=== PATIENT | male | born 1945 | race Caucasian/White ===

== ENCOUNTER 2018-09-23 21:58 | Emergency (ER) | payer OTHER ==
[~2018-09-23] VITALS: Ht 167.6 cm; Wt 61.0 kg
--- NOTE | 2018-09-23 22:13 | ERD ---
ER Documentation Chief Complaint Chief Complaint HPI This is a 73-year-old male who is currently wheelchair-bound at a [facility] facility. The patient has a history of hypertension on lisinopril and a statin. The patient indicates several years ago he became wheelchair-bound due to a previous cerebrovascular accident. He indicates he is been undergoing therapy and had improvement with his weakness of his left upper extremity. At 1925, roughly 2- 1/2 hours prior to arrival the patient complained of numbness of the left side of his face and his left arm. He developed weakness of his left arm. He denies headache. He denies any changes in vision. He denies any difficulty speaking. Nursing staff called 911 and EMS indicated they had spoken with the patient's but she was a poor historian. They indicated the patient's Accu-Chek was 126 and blood pressure is 146/90. ROS All systems reviewed and are negative except as per history of present illness. Physical Exam Vitals Vital Signs Date Temp Pulse Resp B/P (MAP) Pulse Ox O2 O2 Flow FiO2 Time Delivery Rate 09/23/18 98.6 83 16 136/112 98 22:17 (120) Physical Exam Constitutional:Well-developed. Well-nourished. HEENT:Normocephalic. Atraumatic.Pupils were equal round reactive to light. Dry mucous membranes.No tonsillar exudates. Neck: No nuchal rigidity. No lymphadenopathy. No posterior cervical spine tenderness or step-offs. Respiratory: Not using accessory muscles of respiration.Lungs were clear to auscultation bilaterally. No rhonchi. No rales. No wheezing. Cardiovascular: Regular rate regular rhythm.No murmurs. No rubs were appreciated.S1, S2 normal. Distal pulses are palpable 2+ bilaterally. GI: Abdomen was soft. Nontender. Non Distended. No pulsatile abdominal masses or bruits. No rebound. No guarding. Bowel sounds were present and normal. Muscle skeletal: Muscle atrophy of the bilateral lower extremities. Patient has decreased muscular strength of the left upper extremity 3 out of 5 compared to 5 out of 5 in the right upper extremity Skin: No petechia, no purpura. No lesions on the palms or the soles of the feet. No maculopapular rash. NEURO: Patient was alert, awake, orientated x3.No facial droop. Pronator drift of the left upper extremity. No facial droop. No slurred speech. Gait not observed as patient is wheelchair-bound. Decreased sensation to sharp and dull of the left upper extremity and left thigh compared to the right. Sensation intact of the bilateral face. Results 24 hrs Laboratory Tests Test 09/23/18 22:06 09/23/18 22:09 Bedside Glucose 118 mg/dL White Blood Count Pending Red Blood Count Pending Hemoglobin Pending Hematocrit Pending Mean Corpuscular Volume Pending Mean Corpuscular Hemoglobin Pending Mean Corpuscular Hemoglobin Concent Pending Red Cell Distribution Width Pending Platelet Count Pending Mean Platelet Volume Pending Procedures/MDM This is a 73-year-old male that presented to the emergency department with strokelike symptoms. The patient was immediately placed on a color television console monitor continuous pulse oximetry and taken to undergo a CT scan. We received an EMS call and therefore code stroke was called at 2153. EMS arrival was at 2156. The patient was on the CT scanner by 2157. Telemetry neuro was called at 0. I spoke with the radiologist who indicated there was no acute intracerebral hemorrhage but the patient had multiple old left cerebral parietal frontal and occipital changes to suggest previous CVAs and was officially read as the followin. No definite acute intracranial infarct. Correlation with MRI is recommended to clinically appropriate. 2. No evidence for acute hemorrhage.. 3. 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 4. Old left external capsule infarct. 5. Nonspecific white matter changes most commonly seen with microvascular ischemic disease. The patient is not on anticoagulants. 12 Lead EKG tracing ordered and reviewed by myself showed: Normal sinus rhythm of 78 bpm and no arrhythmia. Premature supraventricular complexes AL interval normal. QRS duration normal. No ST segment elevation No ST segment depression. No changes consistent with acute ischemia. EKG tracing taken in route by EMS at 2156 indicated in atrial fibrillation however I was not in agreement with this as there were P waves that were present and appeared to be artifact resulting in the irregular regular rhythm. Heart rate was 81 beats I spoke with the telemetry neurologist Dr. Bennett who evaluated the patient at bedside through the telemetry neuro machine. After Dr. Bennett evaluated the patient we both were in agreement that the patient was not a TPA candidate. The patient was a very poor historian. The patient stated he was not on antiplatelets. He also kept stating he was experiencing both numbness and weakness of his left upper extremity. However from the start of my examination to reevaluation at 10:48 PM the patient had more range of motion of his left upper extremity than he initially had on his arrival to the emergency department. TPA had been discussed with the patient by myself and with Dr. Bennett however the patient states that his remaining sign of numbness of his left upper extremity was not disabling and therefore the risks outweigh the benefits in this situation given the poor history from the patient and his [facility] facility. He was given aspirin in the emergency department. He will be admitted to the hospitalist and to the telemetry service Departure Diagnosis: Primary Impression: Acute weakness Additional Impression: TIA (transient ischemic attack) Condition: Serious LEONIDES BENJAMIN MD Sep 23, 2018 22:13
[2018-09-23 22:17] VITALS: Ht 167.6 cm; Wt 61.0 kg
--- NOTE | 2018-09-23 22:56 | CONS ---
DATE OF ADMISSION: 09/23/2018 DATE OF CONSULTATION: 09/23/2018 REASON FOR CONSULTATION: I was asked to see the patient for concern of left arm numbness or weakness . HISTORY OF PRESENT ILLNESS: The patient is a 73-year-old male with no known past medical history exc ept for prior strokes. The patient presents from a senior care facility where a little history w as shared. The patient seems to be impaired cognitively and is an unreliable historian. He thinks t hat perhaps his symptoms might have started 4 hours ago, though it is unclear from that some point in time. He describes weakness of the left arm that has worsened. Other times he describes that he ju st have some numbness of his left arm. Regardless, it is not clear what the patient's baseline defic it is. He is not on any type of antiplatelets or any type of stroke secondary prevention. Noncontra st head CT demonstrates an old right occipital infarct as well as multiple lacunar disease of uncerta in age. The patient denies any difficulty ambulating. Attempts to reach out to family as well as e facility to determine more exact onset time of symptoms or baseline disabilities have been unsucces sful. PHYSICAL EXAMINATION: At the time on evaluating the patient, the patient is alert. His extraocular movements are full. His face is symmetric. The patient knows what month it is. He knows his age, b ut is otherwise confused. There is a language barrier. The patient has full strength proximally in his left and right arms. He has contracture of his left arm with reduced strength distally. His str ength in his lower extremity seems to be full bilaterally. He denies any objective decrease in sensa tion bilaterally. ASSESSMENT: This is a gentleman who comes in with unclear symptoms with prior stigmata of stroke. T he patient was given aspirin. He should be hydrated. He should begin permissive hypertension ____. It might be appropriate to obtain an MRI scan on him as well as an MRA of the neck to assess for lar ge vessel disease. The patient should not be a TPA candidate or endovascular candidate given the unc ertainty of his baseline and uncertainty of the current new symptoms. I discussed this complex case with the emergency department physician, who agrees with assessment. Dictated By: BRIAN HERNANDEZ CM/NUBIA Conf#: [id number] DID#: [id number] CC: LEONIDES BENJAMIN MD;*[facility]*
[2018-09-23] MEDS ORDERED: BISACODYL (EC) 5 MG TAB PO PRN (23:30)
[2018-09-23] MEDS ORDERED: ACETAMINOPHEN 325 MG TAB PO PRN ×2 (23:30)
[2018-09-23] MEDS ORDERED: NACL 0.9% 3 ML SYG IV SCH (23:30)
[2018-09-23] MEDS ORDERED: ASPIRIN 81 MG TAB PO ONE (23:30)
[2018-09-23] MEDS ORDERED: DOCUSATE SODIUM 100 MG CAP PO PRN (23:30)
[2018-09-23] MEDS ORDERED: ONDANSETRON 4 MG INJ IV PRN ×2 (23:30)
--- NOTE | 2018-09-24 00:08 | HP ---
Date/Time of Note Date/Time of Note DATE: 09/24/18 TIME: 00:06 Assessment/Plan VTE Prophylaxis SCD applied (from Nsg): Yes Pharmacological prophylaxis: NA/contraindicated Pharm contraindication: low risk/ambulating Lines/Catheters IV Catheter Type (from Nrsg): Peripheral IV Assessment/Plan Hospital Course This is a 73-year-old male being admitted to the telemetry unit for observation for: #1 suspicion for CVA/TIA: Patient does have some left upper extremity weakness and numbness that he reports as well as numbness of the face. Unsure whether this is a new or old as we do not have any corroborating evidence. Patient was seen and evaluated by telemetry neurology. Patient was out of TPA window. At the current time we will proceed with an MRI of the brain along with MRA of the brain and neck. Carotid ultrasound. Echocardiogram with bubble study. Will consult neurology . PT OT speech evaluation. CT scan shows old infarcts. Aspirin and statin. Permissive hypertension for the first 24 hours. #2 history of CVA: Patient is currently wheelchair-bound and lives in an assisted living facility. Patient is a poor historian. We will need to corroborate patient's past medical history with his . #3 hyperlipidemia: Statin, will need to confirm what is taking at home #4 DVT GI prophylaxis: SCDs, no GI prophylaxis indicated Further treatment strategy will be transferred clinical course Result Diagram: 09/23/18220809/23/182208 Results 24hrs Laboratory Tests Test 09/23/18 22:06 09/23/18 22:09 Bedside Glucose 118 White Blood Count 8.7 Red Blood Count 4.56 L Hemoglobin 14.6 Hematocrit 41.9 L Mean Corpuscular Volume 91.9 Mean Corpuscular Hemoglobin 32.0 Mean Corpuscular Hemoglobin Concent 34.8 Red Cell Distribution Width 12.6 Platelet Count 279 Mean Platelet Volume 9.9 Immature Granulocytes % 0.200 Neutrophils % 35.2 L Lymphocytes % 53.9 H Monocytes % 7.9 Eosinophils % 2.3 Basophils % 0.5 Nucleated Red Blood Cells % 0.0 Immature Granulocytes # 0.020 Neutrophils # 3.1 Lymphocytes # 4.7 H Monocytes # 0.7 Eosinophils # 0.2 Basophils # 0.0 Nucleated Red Blood Cells # 0.0 Prothrombin Time 12.8 Prothrombin Time Ratio 1.0 INR International Normalized Ratio 0.95 Activated Partial Thromboplast Time 26.6 Urine Color NEGRA Urine Clarity CLOUDY A Urine pH 7.0 Urine Specific [place] 1.009 Urine Ketones NEGATIVE Urine Nitrite NEGATIVE Urine Bilirubin NEGATIVE Urine Urobilinogen NEGATIVE Urine Leukocyte Esterase 1+ H Urine Microscopic RBC 0 Urine Microscopic WBC 11 H Urine Bacteria FEW A Urine Hemoglobin NEGATIVE Urine Glucose NEGATIVE Urine Total Protein NEGATIVE Sodium Level 141 Potassium Level 3.8 Chloride Level 98 Carbon Dioxide Level 31 Anion Gap 12 Blood Urea Nitrogen 20 Creatinine 0.88 Est Glomerular Filtrat Rate mL/min Glucose Level 114 Hemoglobin A1c 5.7 Calcium Level 9.7 Total Bilirubin 0.1 L Direct Bilirubin 0.00 Indirect Bilirubin 0.1 Aspartate Amino Transf (AST/SGOT) 51 H Alanine Aminotransferase (ALT/SGPT) 77 H Alkaline Phosphatase 94 Creatine Kinase 31 Creatine Kinase Index 2.0 Creatinine Kinase MB (Mass) 0.62 Troponin I < 0.012 Total Protein 7.6 Albumin 4.3 Globulin 3.30 H Albumin/Globulin Ratio 1.30 Triglycerides Level 56 Cholesterol Level 109 LDL Cholesterol, Calculated 57 HDL Cholesterol 41 Cholesterol/HDL Ratio 2.6 Urine Opiates Screen Negative Urine Barbiturates Negative Urine Amphetamines Screen Negative Urine Benzodiazepines Screen Negative Urine Cocaine Screen Negative Urine Cannabinoids Negative Ethyl Alcohol Level < 10.0 H HPI/ROS Admit Date/Time Admit Date/Time Hx of Present Illness cc: left sided face and arm numbness The following history was obtained from the ED physician documentation as well as from the patient however patient's history was limited. This is a 73-year-old male who is currently wheelchair-bound at an assisted living facility. The patient indicates several years ago he became wheelchair- bound due to a previous cerebrovascular accident. He indicates he is been undergoing therapy and had improvement with his weakness of his left upper extremity. At 1925, roughly 2-1/2 hours prior to arrival the patient complained of numbness of the left side of his face and his left arm. He developed weakness of his left arm. He denies headache. He denies any changes in vision. He denies any difficulty speaking. Nursing staff called 911 and EMS indicated they had spoken with the patient's but she was a poor historian. They indicated the patient's Accu-Chek was 126 and blood pressure is 146/90. allergies: nkda meds: see aug ROS Const: As per HPI Eyes : No pain discharge or redness or change in visual acuity ENT: No pain, sore throat, congestion, congestion, dysphagia or discharge Respiratory: No shortness of breath, cough, sputum, wheezing, or pleuritic pain Cardiovascular: No chest pain, palpitation, PND, or edema GI : no change in appetite, abdominal pain, nausea, vomiting, diarrhea, constipation, or change in the color his stool Genitourinary: No dysuria, hematuria, flank pain , discharge or CVA tenderness Musculoskeletal: No joint pain, back pain, neck pain, restricted range of motion in neck or joints Skin: No rash, bruising or hives Neuro: As per HPI Endocrine: No polyuria, polydipsia, temperature intolerance Psych: No hallucination, depression, anxiety or suicidal ideation Additional Comments PROCEDURE: CT Brain without contrast. CLINICAL INDICATION: Focal neurological deficit. TECHNIQUE: A CT of the brain was performed on a multislice detector CT scanner utilizing axial sections from the skull base through the vertex without contrast. Images were reviewed on a high-resolution PACS workstation. Exam CTDlvol = 38 mGy and DLP = 634 mGy-cm. One of the following 3 dose reduction techniques were used: Automated exposure control; adjustment of the mA and/or kV according to patient size; or use of iterative reconstruction technique. DICOM images are available. COMPARISON: None available FINDINGS: There is age appropriate central and peripheral atrophy. There is no midline shift. There is a moderate degree of supratentorial periventricular and subcortical white matter hypodensities. There is no definite acute stroke. There old left cerebellar, right occipital and left parietal infarcts. There is an old left external capsule infarct. There is no intracranial hemorrhage or abnormal extra-axial fluid collection. Visualized paranasal sinuses are clear. IMPRESSION: 1. No definite acute intracranial infarct. Correlation with MRI is recommended to clinically appropriate. 2. No evidence for acute hemorrhage.. 3. 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 4. Old left external capsule infarct. 5. Nonspecific white matter changes most commonly seen with microvascular ischemic disease. Findings reported to Dr. Benjamin on 09/23/2018 10:09:10 PM. RPTAT: HMVK .Rafi Estevez MD, MD Date Time Electronically viewed and signed by .Rafi Estevez MD, on 09/23/2018 22:10 .K/ CC: LEONIDES BENJAMIN MD [id number] PROCEDURE: One view chest radiograph. CLINICAL INDICATION: Code stroke TECHNIQUE: An AP view of the chest was obtained. COMPARISON: None FINDINGS: Mediastinum: There is calcification of the wall of the thoracic aorta. Heart size: Normal Pulmonary vasculature: No visible engorgement. Lungs: Clear. Costophrenic sulci: Clear. Bony structures: There appear to be a ossified loose bodies in the inferior recess of the right shoulder, associated with glenohumeral osteoarthritis. IMPRESSION: 1. Atherosclerosis of the thoracic aorta. 2. Otherwise, radiographically unremarkable chest. 3. Degenerative change of both shoulders with probable loose bodies in the right shoulder capsule. RPTAT:AAJJ Physician Uvaldo Date Time Electronically viewed and signed by Physician Uvaldo on 09/23/2018 22:30 GW/ CC: LEONIDES BENJAMIN MD [id number] PMH/Family/Social Past Medical History History of CVA, hyperlipidemia, wheelchair-bound Medications Current Medications Ondansetron HCl (Zofran Inj) 4 mg ER BRIDGE PRN IV NAUSEA/VOMITING; Start 09/23/18 at 23:30; Stop 09/24/18 at 23:29 Acetaminophen (Tylenol Tab) 650 mg ER BRIDGE PRN PO .MILD PAIN 1-3 OR TEMP; Start 09/23/18 at 23:30; Stop 09/24/18 at 23:29 IV Flush (NS 3 ml) 3 ml PER PROTOCOL IV ; Start 09/23/18 at 23:30 Ondansetron HCl (Zofran Inj) 4 mg Q6H PRN IV NAUSEA/VOMITING; Start 09/23/18 at 23:30 Aspirin (Aspirin) 81 mg DAILY PO ; Start 09/24/18 at 09:00 Acetaminophen (Tylenol Tab) 650 mg Q6H PRN PO .PAIN 1-3 OR TEMP; Start 09/23/18 at 23:30 Docusate Sodium (Colace) 100 mg Q12H PRN PO .CONSTIPATION; Start 09/23/18 at 23:30 Bisacodyl (Dulcolax) 5 mg DAILY PRN PO .CONSTIPATION; Start 09/23/18 at 23:30 Coded Allergies: No Known Allergy (Unverified , 09/24/18) Past Surgical History Left arm surgery Family History Significant Family History: no pertinent family hx Social History Alcohol Use: none Smoking Status: Never smoker Drug Use: none Exam/Review of Systems Vital Signs Vitals Vital Signs Date Temp Pulse Resp B/P (MAP) Pulse Ox O2 O2 Flow FiO2 Time Delivery Rate 09/23/18 98.6 83 16 136/112 98 22:17 (120) Exam Exam General: Patient currently lying in bed in no acute distress, he does appear to have some slight slurring of speech however he states that this is normal for him HEENT: Atraumatic, normocephalic. The pupils are equal, round and reactive. Extraocular motor are intact Neck: Supple with full range of motion. No rigidity or meningismus Chest: Nontender Lungs: Clear to auscultation bilaterally no crackles rales or wheezing Heart: Normal S1-S2, Regular rhythm and rate. No murmur, S3, or S4 Abdomen: Soft , nontender, nondistended , bowel sounds are present. No guarding no rebound tenderness , No masses or organomegaly. No costovertebral temporal angle mass Extremities: Normal to inspection, no edema no cyanosis Neurologic: Normal mental status, speech normal, cranial nerves II through XII are intact, left upper extremity weakness compared to the right, unsure of chronicity. Additional Comments 12 Lead EKG tracing ordered and reviewed by myself showed: Normal sinus rhythm of 78 bpm and no arrhythmia. Premature supraventricular complexes MI interval normal. QRS duration normal. No ST segment elevation No ST segment depression. No changes consistent with acute ischemia PROCEDURE: CT Brain without contrast. CLINICAL INDICATION: Focal neurological deficit. TECHNIQUE: A CT of the brain was performed on a multislice detector CT scanner utilizing axial sections from the skull base through the vertex without contrast. Images were reviewed on a high-resolution PACS workstation. Exam CTDlvol = 38 mGy and DLP = 634 mGy-cm. One of the following 3 dose reduction techniques were used: Automated exposure control; adjustment of the mA and/or kV according to patient size; or use of iterative reconstruction technique. DICOM images are available. COMPARISON: None available FINDINGS: There is age appropriate central and peripheral atrophy. There is no midline shift. There is a moderate degree of supratentorial periventricular and subcortical white matter hypodensities. There is no definite acute stroke. There old left cerebellar, right occipital and left parietal infarcts. There is an old left external capsule infarct. There is no intracranial hemorrhage or abnormal extra-axial fluid collection. Visualized paranasal sinuses are clear. IMPRESSION: 1. No definite acute intracranial infarct. Correlation with MRI is recommended to clinically appropriate. 2. No evidence for acute hemorrhage.. 3. 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 4. Old left external capsule infarct. 5. Nonspecific white matter changes most commonly seen with microvascular ischemic disease. Findings reported to Dr. Benjamin on 09/23/2018 10:09:10 PM. RPTAT: HMVK .Rafi Estevez MD, MD Date Time Electronically viewed and signed by .Rafi Estevez MD, MD on 09/23/2018 22:10 .K/ CC: LEONIDES BENJAMIN MD [id number] PROCEDURE: One view chest radiograph. CLINICAL INDICATION: Code stroke TECHNIQUE: An AP view of the chest was obtained. COMPARISON: None FINDINGS: Mediastinum: There is calcification of the wall of the thoracic aorta. Heart size: Normal Pulmonary vasculature: No visible engorgement. Lungs: Clear. Costophrenic sulci: Clear. Bony structures: There appear to be a ossified loose bodies in the inferior recess of the right shoulder, associated with glenohumeral osteoarthritis. IMPRESSION: 1. Atherosclerosis of the thoracic aorta. 2. Otherwise, radiographically unremarkable chest. 3. Degenerative change of both shoulders with probable loose bodies in the right shoulder capsule. RPTAT:AAJJ Physician Uvaldo Date Time Electronically viewed and signed by Wilman Haywood Physician on 09/23/2018 22:30 GW/ CC: LEONIDES BENJAMIN MD [id number] DRAGAN MCFADDEN Sep 24, 2018 00:08
[2018-09-24] MEDS ORDERED: hydrALAzine 20 MG INJ IV PRN (00:30)
[2018-09-24] MEDS ORDERED: ATORVASTATIN 80 MG TAB PO ONE (08:00)
[2018-09-24] MEDS ORDERED: CLOP75TA27 PO (08:19)
[2018-09-24] MEDS ORDERED: ROSU20TA PO (08:20)
[2018-09-24] MEDS ORDERED: LISI1TAB4 PO (08:20)
[2018-09-24] MEDS ORDERED: ATEN50TA PO (08:20)
[2018-09-24] MEDS ORDERED: OLOP2.5D BOTH EYES (08:21)
[2018-09-24] MEDS ORDERED: ASPIRIN 81 MG TAB PO SCH ×2 (09:00)
--- NOTE | 2018-09-24 11:18 | CONS ---
Assessment/Plan Assessment/Plan Hospital Course 73 M c/ reported Hx of prior stroke w/ L hemiparesis....and other comorbidities, who presents for evaluation of acute left face and arm numbness.. for which neurology is consulted He additionally notes perhaps worsened weakness in the left arm... The clinical picture is most ominously concerning for acute stroke.. Recrudescence is additionally considered, though a Dx of exclusion.. Head CT is notable for chronic anterior and posterior infarct bilaterally.. LDL 54 UA + UDS neg P: MRI brain to evaluate for acute ischemia OK to continue plavix for secondary stroke prevention OK to continue Crestor in the short term pending the above (LDL is at goal) PT/OT/ST as necessary Other management per primary Neurologically stable for [place] Consultation Date/Type/Reason Admit Date/Time Type of Consult Neurology Reason for Consultation L face and arm numbness Requesting Provider: BRYON GUERRERO Date/Time of Note DATE: 09/24/18 TIME: 11:18 Hx of Present Illness The following history was obtained from the ED physician documentation as well as from the patient however patient's history was limited. This is a 73-year-old male who is currently wheelchair-bound at an assisted living facility. The patient indicates several years ago he became wheelchair- bound due to a previous cerebrovascular accident. He indicates he is been undergoing therapy and had improvement with his weakness of his left upper extremity. At 1925, roughly 2-1/2 hours prior to arrival the patient complained of numbness of the left side of his face and his left arm. He developed weakness of his left arm. He denies headache. He denies any changes in vision. He denies any difficulty speaking. Nursing staff called 911 and EMS indicated they had spoken with the patient's but she was a poor historian. They indicated the patient's Accu-Chek was 126 and blood pressure is 146/90. negative unless noted otherwise in HPI Exam/Review of Systems Exam Vitals Vital Signs Date Temp Pulse Resp B/P (MAP) Pulse Ox O2 O2 Flow FiO2 Time Delivery Rate 09/24/18 98.3 109 20 155/69 98 Room Air 09:00 (97) Intake and Output 09/23/18 09/23/18 09/24/18 1515:00 23:00 07:00 OutputOutput Total 650 ml BalanceBalance -650 ml Exam PE: Gen Appearance: No Apparent Distress HEENT: Normocephalic Cardiovascular: Regular rate Lungs: Clear bilaterally Abdomen: Soft Extremities: Dry NE: The patient was alert though disoriented. Language was normal. Fund of knowledge was limited. Pupils were equal and reactive to light. There was no afferent pupillary defect. Visual wood were normal. Funduscopic examination was limited. Extra-ocular movements were full. Ptosis was absent. There was no nystagmus. Facial sensation was diminished on the L. Face was symmetric with normal strength. Hearing was intact. Palate movements were normal. Neck strength was normal. There was normal tongue bulk and speed of movement. Tone was normal. Muscle bulk was diminished. I did not see fasciculations. L arm was weak; legs were mildly weak and symmetric Sensation to light touch, vibration sensation was diminished in the LUE. Temperature and pinprick sensation was normal. Rapid alternating movements were normal. Dysmetria noted bilaterally (L worse than R). There was no intention tremor. Gait was deferred due to bedrest. Arm and leg reflexes were 2+ and symmetric. Vaughn's sign was absent. Plantar responses were flexor. Results Result Diagram: 09/24/18 0534 09/24/18 0534 Results 24hrs Laboratory Tests Test 09/23/18 22:06 09/23/18 22:09 09/24/18 05:34 Bedside Glucose 118 White Blood Count 8.7 8.1 Red Blood Count 4.56 L 4.40 L Hemoglobin 14.6 14.0 Hematocrit 41.9 L 40.4 L Mean Corpuscular Volume 91.9 91.8 Mean Corpuscular Hemoglobin 32.0 31.8 Mean Corpuscular Hemoglobin Concent 34.8 34.7 Red Cell Distribution Width 12.6 12.6 Platelet Count 279 273 Mean Platelet Volume 9.9 9.7 Immature Granulocytes % 0.200 0.200 Neutrophils % 35.2 L 48.1 Lymphocytes % 53.9 H 43.1 Monocytes % 7.9 6.8 Eosinophils % 2.3 1.4 Basophils % 0.5 0.4 Nucleated Red Blood Cells % 0.0 0.0 Immature Granulocytes # 0.020 0.020 Neutrophils # 3.1 3.9 Lymphocytes # 4.7 H 3.5 H Monocytes # 0.7 0.6 Eosinophils # 0.2 0.1 Basophils # 0.0 0.0 Nucleated Red Blood Cells # 0.0 0.0 Prothrombin Time 12.8 Prothrombin Time Ratio 1.0 INR International Normalized Ratio 0.95 Activated Partial Thromboplast Time 26.6 Urine Color NEGRA Urine Clarity CLOUDY A Urine pH 7.0 Urine Specific [place] 1.009 Urine Ketones NEGATIVE Urine Nitrite NEGATIVE Urine Bilirubin NEGATIVE Urine Urobilinogen NEGATIVE Urine Leukocyte Esterase 1+ H Urine Microscopic RBC 0 Urine Microscopic WBC 11 H Urine Bacteria FEW A Urine Hemoglobin NEGATIVE Urine Glucose NEGATIVE Urine Total Protein NEGATIVE Sodium Level 141 142 Potassium Level 3.8 3.7 Chloride Level 98 103 Carbon Dioxide Level 31 28 Anion Gap 12 11 Blood Urea Nitrogen 20 16 Creatinine 0.88 0.72 Est Glomerular Filtrat Rate mL/min Glucose Level 114 107 Hemoglobin A1c 5.7 5.7 Calcium Level 9.7 9.5 Total Bilirubin 0.1 L 0.2 Direct Bilirubin 0.00 0.00 Indirect Bilirubin 0.1 0.2 Aspartate Amino Transf (AST/SGOT) 51 H 45 Alanine Aminotransferase (ALT/SGPT) 77 H 68 Alkaline Phosphatase 94 93 Creatine Kinase 31 Creatine Kinase Index 2.0 Creatinine Kinase MB (Mass) 0.62 Troponin I < 0.012 Total Protein 7.6 7.1 Albumin 4.3 4.0 Globulin 3.30 H 3.10 Albumin/Globulin Ratio 1.30 1.29 Triglycerides Level 56 57 Cholesterol Level 109 105 LDL Cholesterol, Calculated 57 54 HDL Cholesterol 41 40 Cholesterol/HDL Ratio 2.6 2.6 Urine Opiates Screen Negative Urine Barbiturates Negative Urine Amphetamines Screen Negative Urine Benzodiazepines Screen Negative Urine Cocaine Screen Negative Urine Cannabinoids Negative Ethyl Alcohol Level < 10.0 H Magnesium Level 1.7 Thyroid Stimulating Hormone (TSH) 0.721 Medications Medication Current Medications Ondansetron HCl (Zofran Inj) 4 mg ER BRIDGE PRN IV NAUSEA/VOMITING; Start 09/23/18 at 23:30; Stop 09/24/18 at 23:29 Acetaminophen (Tylenol Tab) 650 mg ER BRIDGE PRN PO .MILD PAIN 1-3 OR TEMP Last administered on 09/24/18at 05:22; Admin Dose 650 MG; Start 09/23/18 at 23:30; Stop 09/24/18 at 23:29 IV Flush (NS 3 ml) 3 ml PER PROTOCOL IV ; Start 09/23/18 at 23:30 Ondansetron HCl (Zofran Inj) 4 mg Q6H PRN IV NAUSEA/VOMITING; Start 09/23/18 at 23:30 Acetaminophen (Tylenol Tab) 650 mg Q6H PRN PO .PAIN 1-3 OR TEMP; Start 09/23/18 at 23:30 Docusate Sodium (Colace) 100 mg Q12H PRN PO .CONSTIPATION; Start 09/23/18 at 23:30 Bisacodyl (Dulcolax) 5 mg DAILY PRN PO .CONSTIPATION; Start 09/23/18 at 23:30 Hydralazine HCl (Apresoline) 10 mg Q4H PRN IV ELEVATED BLOOD PRESSURE; Start 09/24/18 at 00:30 Aspirin (Aspirin) 81 mg DAILY PO Last administered on 09/24/18at 09:25; Admin Dose 81 MG; Start 09/24/18 at 09:00 Atorvastatin Calcium (Lipitor) 80 mg HS PO ; Start 09/25/18 at 21:00 Past Medical History reviewed Home Meds Reported Medications Olopatadine* (Pataday*) 0.2% - 2.5 Ml Drops, 1 DROP BOTH EYES DAILY, EA 09/24/18 Rosuvastatin Calcium* (Crestor*) 20 Mg Tablet, 20 MG PO QHS, #30 TAB 09/24/18 Atenolol* (Atenolol*) 50 Mg Tablet, 50 MG PO DAILY, #30 TAB 09/24/18 Lisinopril/Hydrochlorothiazide (Lisinopril-Hctz 10-12.5 mg Tab) 1 Each Tablet, 1 EACH PO DAILY, TAB 09/24/18 Clopidogrel Bisulfate (Clopidogrel) 75 Mg Tablet, 75 MG PO DAILY, #30 TAB 09/24/18 Medications Current Medications Ondansetron HCl (Zofran Inj) 4 mg ER BRIDGE PRN IV NAUSEA/VOMITING; Start 09/23/18 at 23:30; Stop 09/24/18 at 23:29 Acetaminophen (Tylenol Tab) 650 mg ER BRIDGE PRN PO .MILD PAIN 1-3 OR TEMP Last administered on 09/24/18at 05:22; Admin Dose 650 MG; Start 09/23/18 at 23:30; Stop 09/24/18 at 23:29 IV Flush (NS 3 ml) 3 ml PER PROTOCOL IV ; Start 09/23/18 at 23:30 Ondansetron HCl (Zofran Inj) 4 mg Q6H PRN IV NAUSEA/VOMITING; Start 09/23/18 at 23:30 Acetaminophen (Tylenol Tab) 650 mg Q6H PRN PO .PAIN 1-3 OR TEMP; Start 09/23/18 at 23:30 Docusate Sodium (Colace) 100 mg Q12H PRN PO .CONSTIPATION; Start 09/23/18 at 2 3:30 Bisacodyl (Dulcolax) 5 mg DAILY PRN PO .CONSTIPATION; Start 09/23/18 at 23:30 Hydralazine HCl (Apresoline) 10 mg Q4H PRN IV ELEVATED BLOOD PRESSURE; Start 09/24/18 at 00:30 Aspirin (Aspirin) 81 mg DAILY PO Last administered on 09/24/18at 09:25; Admin Dose 81 MG; Start 09/24/18 at 09:00 Atorvastatin Calcium (Lipitor) 80 mg HS PO ; Start 09/25/18 at 21:00 Allergies: Coded Allergies: No Known Allergy (Unverified , 09/24/18) Past Surgical History reviewed Social History Alcohol Use: none Smoking Status: Never smoker Drug Use: none FOZIA CHRISTIE Sep 24, 2018 11:18 TOLU RDZ NP Sep 24, 2018 14:45
--- NOTE | 2018-09-24 14:00 | DS ---
Date/Time of Note Date/Time of Note DATE: 09/24/18 TIME: 13:53 Discharge Summary Admission/Discharge Info Admit Date/Time Discharge Date/Time Discharge Diagnosis #1 Recurrent CVA: -Patient had some gait abnormality residual from prior stroke, but he is stating that his left upper extremity weakness is definitely deviated from previous. Patient presented out of TPA window, patient pending MRI/MRA brain and MRA neck. Continues on aspirin and statin. Permissive hypertension for [address] #2 history of CVA: Patient is currently wheelchair-bound and lives in an assisted living facility. Patient is a poor historian. We will need to corroborate patient's past medical history with his . #3 hyperlipidemia: Patient on high-dose statin #4 possible urinary tract infection based on urinalysis, patient is not reporting any urinary symptoms . Patient Condition: Stable Consults Neurology: Hien Drummond MD . Procedures See hospital course . Hospital Course Full details are available in the chart for review. In summary this is a 73-year-old male who was brought to us from the assisted living facility because of left-sided facial numbness and left upper extremity paresis. Patient is chronically wheelchair bound and resides in the assisted living facility. The patient has had a stroke in the past, but seems to imply that he regained full range of motion in all his extremities, but this contradicts the fact that he is wheelchair bound and resides in an assisted living facility. He is saying that his left upper extremity weakness is new from yesterday, but the patient has evidence of chronic muscle wasting in left upper extremity and chronic contractures in his left hand. At this time though he does have definite weakness in the left compared to the right, but again it is hard to ascertain if this is new or what is new. His left-sided facial numbness has improved, he has been admitted for stroke workup, however as he is a [employer] member, he is stable for transfer to [facility] for continued management. So far, imaging studies available as follows: 1. Chest x-ray: Showed atherosclerosis of thoracic aorta, otherwise radiographically unremarkable. Also shows right degenerative changes of both shoulders with probable loose bodies in the right shoulder 2. CT of the Brain,: Shows No Definite Acute Intracranial Infarct, No Evidence of Acute Hemorrhage, Old Left Cerebellar, Right Occipital, Left Parietal, and Left External Capsule Infarct 3. Carotid Doppler Studies: Showed No Evidence for Hemodynamically Significant Stenosis in Bilateral Internal Carotid Arteries, Left Carotid Bifurcation Reveals Moderate Calcific Atherosclerotic Disease with 61% Stenosis in Left Proximal ICA 4. 2D Echocardiogram with Bubble Study Has Been Done but Is Pending 5. Urinalysis Showed Cloudy Clarity with 1+ Esterase, 11 WBC per High-Power Field, Few Bacteria At This Time Patient Is Stable for Inpatient Transfer to Telemetry Floor for Continued Stroke Workup. . Home Meds Reported Medications Olopatadine* (Pataday*) 0.2% - 2.5 Ml Drops, 1 DROP BOTH EYES DAILY, EA 09/24/18 Rosuvastatin Calcium* (Crestor*) 20 Mg Tablet, 20 MG PO QHS, #30 TAB 09/24/18 Atenolol* (Atenolol*) 50 Mg Tablet, 50 MG PO DAILY, #30 TAB 09/24/18 Lisinopril/Hydrochlorothiazide (Lisinopril-Hctz 10-12.5 mg Tab) 1 Each Tablet, 1 EACH PO DAILY, TAB 09/24/18 Clopidogrel Bisulfate (Clopidogrel) 75 Mg Tablet, 75 MG PO DAILY, #30 TAB 09/24/18 Primary Care Provider Care Physician No Primary Time spent on discharge: > 30 minutes Pending Labs Laboratory Tests Test 09/23/18 22:06 09/23/18 22:09 09/24/18 05:34 Bedside Glucose 118 mg/dL (70-220) White Blood Count 8.7 8.1 10^3/ul (4.8-10.8) 10^3/ul (4.8-10.8) Red Blood Count 4.56 4.40 10^6/ul (4.70-6.10) 10^6/ul (4.70-6.10 ) Hemoglobin 14.6 14.0 g/dl (14.0-18.0) g/dl (14.0-18.0) Hematocrit 41.9 % (42.0-52.0) 40.4 % (42.0-52.0) Mean Corpuscular 91.9 91.8 Volume fl (82.0-101.0) fl (82.0-101.0) Mean Corpuscular 32.0 pg (29.0-33.0) 31.8 Hemoglobin pg (29.0-33.0) Mean Corpuscular 34.8 34.7 Hemoglobin Concent g/dl (32.0-37.0) g/dl (32.0-37.0) Red Cell 12.6 % (11.5-14.5) 12.6 % (11.5-14.5) Distribution Width Platelet Count 279 273 10^3/UL (140-415) 10^3/UL (140-415) Mean Platelet 9.9 fl (7.4-10.4) 9.7 fl (7.4-10.4) Volume Immature 0.200 0.200 Granulocytes % % (0.001-0.429) % (0.001-0.429) Neutrophils % 35.2 % (39.0-77.0) 48.1 % (39.0-77.0) Lymphocytes % 53.9 % (15.0-51.0) 43.1 % (15.0-51.0) Monocytes % 7.9 % (0.0-11.0) 6.8 % (0.0-11.0) Eosinophils % 2.3 % (0.0-7.0) 1.4 % (0.0-7.0) Basophils % 0.5 % (0.0-2.0) 0.4 % (0.0-2.0) Nucleated Red Blood 0.0 0.0 Cells % /100WBC (0.0-0.0) /100WBC (0.0-0.0) Immature 0.020 0.020 Granulocytes # 10^3/ul (0.0-0.031) 10^3/ul (0.0-0.031 ) Neutrophils # 3.1 3.9 10^3/ul (1.6-7.5) 10^3/ul (1.6-7.5) Lymphocytes # 4.7 3.5 10^3/ul (0.8-2.9) 10^3/ul (0.8-2.9) Monocytes # 0.7 0.6 10^3/ul (0.3-0.9) 10^3/ul (0.3-0.9) Eosinophils # 0.2 0.1 10^3/ul (0.0-0.5) 10^3/ul (0.0-0.5) Basophils # 0.0 0.0 10^3/ul (0.0-0.1) 10^3/ul (0.0-0.1) Nucleated Red Blood 0.0 0.0 Cells # 10^3/ul (0.0-0.0) 10^3/ul (0.0-0.0) Prothrombin Time 12.8 Sec (11.9-14.9) Prothrombin Time 1.0 Ratio INR International 0.95 Normalized Ratio Activated 26.6 Partial Thromboplas Sec (23.0-35.0) t Time Urine Color NEGRA (YELLOW) Urine Clarity CLOUDY (CLEAR) Urine pH 7.0 (5.0-9.0) Urine Specific 1.009 (1.003-1.030) [place] Urine Ketones NEGATIVE mg/dL (NEGATIVE) Urine Nitrite NEGATIVE mg/dL (NEGATIVE) Urine Bilirubin NEGATIVE mg/dL (NEGATIVE) Urine Urobilinogen NEGATIVE mg/dL (NEGATIVE) Urine Leukocyte 1+ Esterase Amtt/ul (NEGATIVE) Urine Microscopic 0 /HPF (0-5) RBC Urine Microscopic 11 /HPF (0-5) WBC Urine Bacteria FEW /HPF (NONE SEEN) Urine Hemoglobin NEGATIVE mg/dL (NEGATIVE) Urine Glucose NEGATIVE mg/dL (NEGATIVE) Urine Total NEGATIVE Protein mg/dl (NEGATIVE) Sodium Level 141 142 mmol/L (135-144) mmol/L (135-144) Potassium Level 3.8 3.7 mmol/L (3.5-5.1) mmol/L (3.5-5.1) Chloride Level 98 mmol/L (97-110) 103 mmol/L (97-110) Carbon Dioxide 31 mmol/L (21-31) 28 mmol/L (21-31) Level Anion Gap 12 (5-13) 11 (5-13) Blood Urea 20 mg/dl (7-20) 16 mg/dl (7-20) Nitrogen Creatinine 0.88 0.72 mg/dl (0.61-1.24) mg/dl (0.61-1.24) Est Glomerular mL/min (>60) mL/min (>60) Filtrat Rate mL/min Glucose Level 114 mg/dl (70-220) 107 mg/dl (70-220) Hemoglobin A1c 5.7 % (0-5.9) 5.7 % (0-5.9) Calcium Level 9.7 9.5 mg/dl (8.4-10.2) mg/dl (8.4-10.2) Total Bilirubin 0.1 mg/dl (0.2-1.3) 0.2 mg/dl (0.2-1.3) Direct Bilirubin 0.00 0.00 mg/dl (0.00-0.20) mg/dl (0.00-0.20) Indirect Bilirubin 0.1 mg/dl (0-1.1) 0.2 mg/dl (0-1.1) Aspartate Amino 51 IU/L (15-46) 45 IU/L (15-46) Transf (AST/SGOT) Alanine 77 IU/L (13-69) 68 IU/L (13-69) Aminotransferase (A LT/SGPT) Alkaline 94 IU/L (42-121) 93 IU/L (42-121) Phosphatase Creatine Kinase 31 IU/L (23-200) Creatine Kinase 2.0 Index Creatinine Kinase 0.62 MB (Mass) ng/ml (0.0-2.4) Troponin I < 0.012 ng/ml (0.000-0.120) Total Protein 7.6 g/dl (6.1-8.1) 7.1 g/dl (6.1-8.1) Albumin 4.3 g/dl (3.3-4.9) 4.0 g/dl (3.3-4.9) Globulin 3.30 g/dl (1.3-3.2) 3.10 g/dl (1.3-3.2) Albumin/Globulin 1.30 1.29 Ratio Triglycerides 56 mg/dl (0-149) 57 mg/dl (0-149) Level Cholesterol Level 109 mg/dl (100-200) 105 mg/dl (100-200) LDL Cholesterol, 57 mg/dl 54 mg/dl Calculated HDL Cholesterol 41 mg/dl (31-75) 40 mg/dl (31-75) Cholesterol/HDL 2.6 RATIO 2.6 RATIO Ratio Urine Opiates Negative (NEGATIVE) Screen Urine Barbiturates Negative (NEGATIVE) Urine Amphetamines Negative (NEGATIVE) Screen Urine Negative (NEGATIVE) Benzodiazepines Screen Urine Cocaine Negative (NEGATIVE) Screen Urine Cannabinoids Negative (NEGATIVE) Ethyl Alcohol < 10.0 mg/dl (0-0) Level Magnesium Level 1.7 mg/dl (1.7-2.5) Thyroid Stimulating 0.721 Hormone (TSH) MIU/L (0.465-4.680 ) BRYON GUERRERO Sep 24, 2018 14:00
[2018-09-24 14:43] VITALS: BP 138/80; PULSE 80; RESP 20
[2018-09-25] MEDS ORDERED: ATORVASTATIN 80 MG TAB PO SCH (21:00)
== END 2018-09-24 16:09 | disposition short-term general hospital (02) ==
LOC: E/R 21:58 → CANBEDREQ 09-24 14:48 → E/R 09-24 16:09
DX: G45.9 Transient cerebral ischemic attack, unspecified (principal); R53.1 Weakness; R40.2142 Coma scale, eyes open, spontaneous, at arrival to emergency department; R40.2252 Coma scale, best verbal response, oriented, at arrival to emergency department; R40.2362 Coma scale, best motor response, obeys commands, at arrival to emergency department; I10 Essential (primary) hypertension
CPT/HCPCS: 36415; 70450; 71045; 80053; 80061; 80307; 81001; 82550; 82553; 82962; 83036; 83735; 84443; 84484; 85025; 85610; 85730; 93005; 93880